=== PATIENT | female | born 1980 | race Caucasian/White ===

== ENCOUNTER 2020-12-01 22:15 | Emergency (ER) | payer SELFPAY ==
[~2020-12-01] VITALS: Ht 149.9 cm; Wt 48.0 kg
[2020-12-01] MEDS ORDERED: ACETAMINOPHEN WITH CODEINE 300/30MG TABLET PO ONE (23:30)
[2020-12-02] MEDS ORDERED: T3 PO (02:06)
[2020-12-02] MEDS ORDERED: IBUP-2029 MT (02:06)
[2020-12-02] MEDS ORDERED: AMOX-424 MT (02:07)
[2020-12-02 02:22] VITALS: BP 124/68
== END 2020-12-02 02:23 | disposition home or self-care (01) ==
LOC: EDBD 22:15 → ER 22:15
DX: R68.84 Jaw pain (principal); S00.83XA Contusion of other part of head, initial encounter; S02.2XXA Fracture of nasal bones, initial encounter for closed fracture; Y04.0XXA Assault by unarmed brawl or fight, initial encounter; Y93.89 Activity, other specified; Y92.89 Other specified places as the place of occurrence of the external cause; Y99.8 Other external cause status
CPT/HCPCS: 70486; 99285